=== PATIENT | male | born 1960 ===

== ENCOUNTER 2018-06-20 05:03 | Observation (INO) | payer MEDICARE, MEDICAID ==
--- NOTE | 2018-06-20 05:18 | C.PDOC ---
History Of Present Illness Patient presents to the ER with a complaint of intermittent dull aching chest pressure radiating to the back for the past 10 days. Patient states he feels like his blood pressure is high. Denies fever, chills, nausea, or vomiting. Time Seen by Provider: 06/20/18 05:18 Chief Complaint (Nursing): Chest Pain History Per: Patient History/Exam Limitations: no limitations Onset/Duration Of Symptoms: Days (10), Intermittent Episodes Current Symptoms Are (Timing): Still Present Severity: Moderate Pain Scale Rating Of: 4 Quality: Dull, Aching Associated Symptoms: denies: Nausea, Dyspnea, Diaphoresis, Syncope, Other (Fever, Chills) Modifying Factors: None Exacerbating Factors: None Alleviating Factors: None Recent travel outside of the [place]: No Past Medical History Reviewed: Historical Data, Nursing Documentation, Vital Signs Vital Signs: Last Vital Signs Temp 98.1 F 06/20/18 05:11 Pulse 67 06/20/18 05:11 Resp 12 06/20/18 05:11 BP 181/97 H 06/20/18 05:11 Pulse Ox 98 06/20/18 05:11 - Medical History PMH: Anxiety, Diabetes, HTN Denies: Chronic Kidney Disease Surgical History: Cholecystectomy, Coronary Stent Family History: States: Stroke, Diabetes, Hypertension - Social History Hx Tobacco Use: Yes Hx Alcohol Use: No Hx Substance Use: No - Immunization History Hx Tetanus Toxoid Vaccination: No Hx Influenza Vaccination: No Hx Pneumococcal Vaccination: No Review Of Systems Constitutional: Negative for: Fever, Chills Cardiovascular: Positive for: Chest Pain Respiratory: Negative for: Cough, Shortness of Breath Gastrointestinal: Negative for: Nausea, Vomiting Neurological: Negative for: Weakness, Numbness Physical Exam - Physical Exam Appears: Non-toxic Skin: Warm, Dry Head: Normacephalic Oral Mucosa: Moist Neck: Trachea Midline, Supple Chest: Symmetrical, No Tenderness Cardiovascular: Rhythm Regular Respiratory: No Rales, No Rhonchi, No Wheezing Gastrointestinal/Abdominal: Soft, No Tenderness Neurological/Psych: Oriented x3 ED Course And Treatment - Laboratory Results Result Diagrams: 06/20/18 05:26 06/20/18 05:26 ECG: Interpreted By Me, Viewed By Me ECG Rhythm: Sinus Rhythm (60), R BBB, Nonspecific Changes O2 Sat by Pulse Oximetry: 98 (Room air) Pulse Ox Interpretation: Normal - Radiology CXR: Interpreted by Me, Viewed By Me Progress Note: EKG and blood work ordered. Disposition Counseled Patient/Family Regarding: Studies Performed, Diagnosis - Disposition Disposition Time: 05:18 Condition: FAIR Forms: [facility] (M[place]ese) - Clinical Impression Clinical Impression: Chest pain - Scribe Statement The provider has reviewed the documentation as recorded by the Scribe Ric Marino All medical record entries made by the Scribe were at my direction and personally dictated by me. I have reviewed the chart and agree that the record accurately reflects my personal performance of the history, physical exam, medical decision making, and the department course for this patient. I have also personally directed, reviewed, and agree with the discharge instructions and disposition. Physician Patient Turnover Patient Signed Over To: Puma Presley Handoff Comments: pending xray, re-eval and dispo
[2018-06-20 05:28] LABS: BASO % 0.8 % (0.0-2.0); EOS # 0.1 K/uL (0.0-0.7); EOS % 2.6 % (0.0-4.0); LYMPH # 2.2 K/uL (1.0-4.3); LYMPH % 38.5 % (20.0-40.0); MEAN CELL VOLUME 89.2 fL (80.0-94.0); MEAN CORPUSCULAR HEMOGLOBIN 31.3 pg (27.0-31.0); MEAN CORPUSCULAR HGB CONC 35.1 g/dL (33.0-37.0); MEAN PLATELET VOLUME 8.7 fL (7.2-11.7); MONO # 0.4 K/uL (0.0-0.8); MONO % 7.2 % (0.0-10.0); NEUT # 2.9 K/uL (1.8-7.0); NEUT % 50.9 % (50.0-75.0); NRBC % 0.1 % (0.0-2.0); RBC 4.79 Mil/uL (4.40-5.90); RED CELL DISTRIBUTION WIDTH 13.1 % (11.5-14.5); WHITE BLOOD COUNT 5.7 K/uL (4.8-10.8)
[2018-06-20 05:54] LABS: ALB/GLOB RATIO 1.5 (1.0-2.1); ALBUMIN 4.2 g/dL (3.5-5.0); ALT/SGPT 32 U/L (21-72); AST/SGOT 20 U/L (17-59); BLOOD UREA NITROGEN 15 mg/dL (9-20); CALCIUM 8.8 mg/dl (8.6-10.4); GFR NON-AFRICAN AMERICAN > 60; LIPASE 155 U/L (23-300)
[2018-06-20 06:10] LABS: PROTHROMBIN TIME 10.7 SECONDS (9.7-12.2)
[2018-06-20] MEDS ORDERED: Potassium Chloride 10 mEq ER Tab PO STA (06:25)
[2018-06-20] MEDS ORDERED: Potassium Chloride 20 mEq ER Tab PO ONE (06:40)
[2018-06-20] MEDS ORDERED: Aspirin 325 mg EC Tablets PO ONE (08:08)
--- NOTE | 2018-06-20 08:34 | CP.PCM.HP ---
<Serafin Sandoval - Last Filed: 06/20/18 16:44> History of Present Illness - History of Present Illness History of Present Illness: cc: My chest hurts, my back hurts, I'm worried help me HPI: Patient is a 57 yo male w/ PMH of HTN, HLD, hx of panic attacks, and DM2. Presents to the ED with a 10 day history of chest discomfort. He says it began on after he saw his PMD in office Dr Begum who changed him from Losartan to Lisinopril. He then had an episode of 6/10 CP while on the computer at home last night at 3AM which prompted hiom to check his BP- reading 180 SBP. This braught him anxiety and prompted him to come to [facility]. He has a 25yr hx of panic attacks for which is not controlled with medication or formal psychotherapy. He gets these symptoms when he is stressed out with home issues and family issues. Pt had stress test 4yrs ago which was normal and was Cathed 6 years ago showing plaque in Coronary arteries. Pt admits to the pain radiating to the back. He has hx of Herniated Lumbar discs and longstanding backpain. Pt has a gambling problem as well. ROS POS+ cp at rest, back pain, anxiety, NEG- SOB, FC, NV, Palps, headache, sweating, abd pain, changes in BM, dysuria, cough, PMHx: HTN, HLD, hx of panic attacks, and DM2 PSH: Cholecystectomy, left shoulder rotator cuff surgery, cardiac cath 6 years ago and colonoscopy over 6 years ago. FH: Mom side has DM, Father HTN, and his sister from stroke at age 22. SH: Former smoker, denies etoh, or illicit drug use, retired from the [employer]. Allergies: NKDA PMD: Shy. Home Rx: Metformin Lisiopril Crestor (doesnt take) Full code Present on Admission - Present on Admission Any Indicators Present on Admission: No Review of Systems - Review of Systems Review of Systems: 12 point ROS obtained and noted in HPI Past Patient History - Infectious Disease Hx of Infectious Diseases: None - Past Medical History & Family History Past Medical History?: Yes - Past Social History Smoking Status: Never Smoked - CARDIAC Hx Hypertension: Yes - PULMONARY Hx Respiratory Disorders: No - NEUROLOGICAL Hx Neurological Disorder: No - HEENT Hx HEENT Problems: No - RENAL Hx Chronic Kidney Disease: No - ENDOCRINE/METABOLIC Hx Endocrine Disorders: Yes Hx Diabetes Mellitus Type 2: Yes - HEMATOLOGICAL/ONCOLOGICAL Hx Blood Disorders: No - INTEGUMENTARY Hx Dermatological Problems: No - MUSCULOSKELETAL/RHEUMATOLOGICAL Hx Falls: No - GASTROINTESTINAL Hx Gastrointestinal Disorders: No - GENITOURINARY/GYNECOLOGICAL Hx Genitourinary Disorders: No - PSYCHIATRIC Hx Anxiety: Yes Hx Substance Use: No - SURGICAL HISTORY Hx Cholecystectomy: Yes Hx Coronary Stent: Yes - ANESTHESIA Hx Anesthesia: Yes Hx Anesthesia Reactions: No Meds Allergies/Adverse Reactions: Allergies Allergy/AdvReac Type Severity Reaction Status Date / Time No Known Allergies Allergy Verified 04/28/16 01:53 Physical Exam - Constitutional Appears: Well, Non-toxic, No Acute Distress - Head Exam Head Exam: ATRAUMATIC, NORMAL INSPECTION - Eye Exam Eye Exam: EOMI, Normal appearance. absent: Scleral icterus Pupil Exam: NORMAL ACCOMODATION - ENT Exam ENT Exam: Mucous Membranes Moist, Normal Exam - Neck Exam Neck exam: Positive for: Normal Inspection. Negative for: Tenderness, Thyromegaly - Respiratory Exam Respiratory Exam: Clear to Auscultation Bilateral. absent: Chest Wall Tenderness, Wheezes, Respiratory Distress - Cardiovascular Exam Cardiovascular Exam: REGULAR RHYTHM, RRR, +S1, +S2. absent: Tachycardia - GI/Abdominal Exam GI & Abdominal Exam: Normal Bowel Sounds, Soft. absent: Distended, Firm, Rigid, Tenderness - Extremities Exam Extremities exam: Positive for: normal inspection, pedal pulses present. Negative for: joint swelling, pedal edema - Back Exam Back exam: NORMAL INSPECTION. absent: paraspinal tenderness, rash noted Additional comments: decreased ROM in Lumbar flex and extension - Neurological Exam Neurological exam: Alert, CN II-XII Intact, Oriented x3 - Psychiatric Exam Psychiatric exam: Anxious, Normal Affect, Normal Mood - Skin Skin Exam: Normal Color, Warm Results - Vital Signs Recent Vital Signs: Last Vital Signs Temp 98.3 F 06/20/18 07:17 Pulse 55 L 06/20/18 07:17 Resp 18 06/20/18 07:17 BP 155/81 H 06/20/18 07:17 Pulse Ox 99 06/20/18 07:17 - Labs Result Diagrams: 06/20/18 05:26 06/20/18 05:26 Labs: Laboratory Results - last 24 hr 06/20/18 06/20/18 06/20/18 05:26 05:26 05:26 WBC 5.7 RBC 4.79 Hgb 15.0 Hct 42.7 MCV 89.2 D MCH 31.3 H MCHC 35.1 RDW 13.1 Plt Count 196 MPV 8.7 Neut % (Auto) 50.9 Lymph % (Auto) 38.5 [place] % (Auto) 7.2 Eos % (Auto) 2.6 Baso % (Auto) 0.8 Neut # (Auto) 2.9 Lymph # (Auto) 2.2 [place] # (Auto) 0.4 Eos # (Auto) 0.1 Baso # (Auto) 0.0 PT 10.7 INR 1.0 APTT 34 Sodium 137 Potassium 3.2 L Chloride 102 Carbon Dioxide 26 Anion Gap 13 BUN 15 Creatinine 0.6 L Est GFR ( Amer) > 60 Est GFR (Non-Af Amer) > 60 Random Glucose 156 H Calcium 8.8 Total Bilirubin 0.7 AST 20 ALT 32 Alkaline Phosphatase 109 Troponin I < 0.0120 NT-Pro-B Natriuret Pep 74.0 Total Protein 6.9 Albumin 4.2 Globulin 2.7 Albumin/Globulin Ratio 1.5 Lipase 155 Assessment & Plan - Assessment and Plan (Free Text) Assessment: 57M , PMHx of panic attack DM2 and HLD presents to ED for CP and anxiety. EKG shows NSR, w/ incomplete RBBB. -given Stat dose ASA 325 PLAN Angina r/o ACS -Etiology likely anxiety induced from a panic attack -EKG shows NSR -Troponins x2 Neg: f/u last troponins -CKMBs neg x1 -Dr Wasserman Consulted f/u recs -ASA 81mg PO QD HTN -Continue Lisinpril 10mg QD -Consider increasing dose if SBP is still elevated -Monitor Vitals DM2 -Metformin 1000mg BID PO -Accuchecks ACHS -Hypoglycemic protocol -ISS High -f/u A1c Hx of Panic Attacks -Pt refuses to take medications for this condition -Pt just uses personal coping mechanisms -consider psych eval if pt is agreeable -f/u UDS Hypokalemia -K+ 3.2 on admission -Given KCL 20 in ED -40 meq oral scott/n -f/u repeat CMP HLD -continue Crestor 20mg -f/u Lipid panel -pt educated to take home rx PPX -GI not indicated -Heparin 5000u q8 sc -ASA 81 QD d/w Dr Raad Shipley <Raad Shipley - Last Filed: 06/20/18 17:38> Results - Vital Signs Recent Vital Signs: Last Vital Signs Temp 97.9 F 06/20/18 15:49 Pulse 65 06/20/18 15:49 Resp 18 06/20/18 15:49 BP 132/65 06/20/18 15:49 Pulse Ox 95 06/20/18 15:49 - Labs Result Diagrams: 06/20/18 05:26 06/20/18 05:26 Labs: Laboratory Results - last 24 hr 06/20/18 06/20/18 06/20/18 05:26 05:26 05:26 WBC 5.7 RBC 4.79 Hgb 15.0 Hct 42.7 MCV 89.2 D MCH 31.3 H MCHC 35.1 RDW 13.1 Plt Count 196 MPV 8.7 Neut % (Auto) 50.9 Lymph % (Auto) 38.5 [place] % (Auto) 7.2 Eos % (Auto) 2.6 Baso % (Auto) 0.8 Neut # (Auto) 2.9 Lymph # (Auto) 2.2 [place] # (Auto) 0.4 Eos # (Auto) 0.1 Baso # (Auto) 0.0 PT 10.7 INR 1.0 APTT 34 Sodium 137 Potassium 3.2 L Chloride 102 Carbon Dioxide 26 Anion Gap 13 BUN 15 Creatinine 0.6 L Est GFR ( Amer) > 60 Est GFR (Non-Af Amer) > 60 POC Glucose (mg/dL) Random Glucose 156 H Calcium 8.8 Total Bilirubin 0.7 AST 20 ALT 32 Alkaline Phosphatase 109 Total Creatine Kinase CK-MB (Mass) Troponin I < 0.0120 NT-Pro-B Natriuret Pep 74.0 Total Protein 6.9 Albumin 4.2 Globulin 2.7 Albumin/Globulin Ratio 1.5 Lipase 155 06/20/18 06/20/18 06/20/18 12:42 15:09 16:32 WBC RBC Hgb Hct MCV MCH MCHC RDW Plt Count MPV Neut % (Auto) Lymph % (Auto) [place] % (Auto) Eos % (Auto) Baso % (Auto) Neut # (Auto) Lymph # (Auto) [place] # (Auto) Eos # (Auto) Baso # (Auto) PT INR APTT Sodium Potassium Chloride Carbon Dioxide Anion Gap BUN Creatinine Est GFR ( Amer) Est GFR (Non-Af Amer) POC Glucose (mg/dL) 250 H 135 H Random Glucose Calcium Total Bilirubin AST ALT Alkaline Phosphatase Total Creatine Kinase 42 L CK-MB (Mass) 0.81 Troponin I < 0.0120 NT-Pro-B Natriuret Pep Total Protein Albumin Globulin Albumin/Globulin Ratio Lipase Attending/Attestation - Attestation I have personally seen and examined this patient.: Yes I have fully participated in the care of the patient.: Yes I have reviewed all pertinent clinical information: Yes Notes (Text): 06/20/18 17:34 Medical attending: Patient was seen and examined by me with the medical residents Patient reported no pain when I met and examined him. He reported overnight he did have pain. There is a medical history of DM and HTN - he says to us that he does not take cholesterol medication out of his own choosing. We explained to him that because of the history of HTN and DM that he should be on a statin - he says people have told him this before but he wanted to try other ways to lower cholestrol - we need lipid panel. Also he thinks his new medication the lisinopril gives him headaches. When he first came to the hospital the systolic BP was elevated and it is now decreased. No headache at this time We will get cardiology evaluation while patient is here Will check cardiac enzymes q6hrs and monitor patient on telemetry. Raad Shipley
[2018-06-20] MEDS ORDERED: Dextrose 50% SYRINGE Inj (50 ml) IV PRN (10:06)
[2018-06-20] MEDS ORDERED: Glucagon Recombinant 1 mg Inj IM PRN (10:06)
[2018-06-20] MEDS: (Novolin R) Insulin Human Regular 100 units/ml vial SC SCH ×3 (12:52→21:52)
[2018-06-20] MEDS ORDERED: Potassium Chloride 20 mEq/15 ml LIQ UD PO ONE (14:00)
[2018-06-20 15:59] LABS: CK-MB 0.81 ng/mL (0.0-3.38)
--- NOTE | 2018-06-20 17:19 | CP.PCM.CON ---
History of Present Illness - History of Present Illness History of Present Illness: I was asked to see patient by Dr Shipley. Patient seen 06/20/18 1700 Patient is a 57 year old male withHTN who presents with substernal chest pain. Symptoms began yesterday, and he describes a pressure like sensation in the center of the chest. The patient describes associated dyspnea and radiation to the left arm. He had headache Review of Systems - Constitutional Constitutional: absent: As Per HPI, Anorexia, Chills, Daytime Sleepiness, Excessive Sweating, Fatigue, Fever, Frequent Falls, Headache, Increased Appetite, Lethargy, Malaise, Night Sweats, Snoring, Sleep Apnea, Weight Gain, Weight Loss, Weakness, Other - EENT Eyes: absent: As Per HPI, Blind Spots, Blurred Vision, Change in Vision, Decreased Night Vision, Diplopia, Discharge, Dry Eye, Exophthalmos, Floaters, Irritation, Itchy Eyes, Loss of Peripheral Vision, Pain, Photophobia, Requires Corrective Lenses, Sees Flashes, Spots in Vision, Tunnel Vision, Other Visual Disturbances, Loss of Vision, Other Ears: absent: As Per HPI, Decreased Hearing, Ear Discharge, Ear Pain, Tinnitus, Abnormal Hearing, Disequilibrium, Dizziness, Other Nose/Mouth/Throat: absent: As Per HPI, Epistaxis, Nasal Congestion, Nasal D ischarge, Nasal Obstruction, Nasal Trauma, Nose Pain, Post Nasal Drip, Sinus Pain, Sinus Pressure, Bleeding Gums, Change in Voice, Dental Pain, Dry Mouth, Dysphagia, Halitosis, Hoarsness, Lip Swelling, Mouth Lesions, Mouth Pain, Odynophagia, Sore Throat, Throat Swelling, Tongue Swelling, Facial Pain, Neck Pain, Neck Mass, Other - Cardiovascular Cardiovascular: Chest Pain, Dyspnea - Respiratory Respiratory: Dyspnea - Gastrointestinal Gastrointestinal: absent: As Per HPI, Abdominal Pain, Belching, Bloating, Change in Bowel Habits, Change in Stool Character, Coffee Ground Emesis, Constipation, Cramping, Diarrhea, Dyspepsia, Dysphagia, Early Satiety, Excessive Flatus, Fecal Incontinence, Heartburn, Hematemesis, Hematochezia, Loose Stools, Melena, Nausea, Odynophagia, Temesmus, Vomiting, Other - Genitourinary Genitourinary: absent: As Per HPI, Change in Urinary Stream, Difficulty Urinating, Dysuria, Flank Pain, Hematuria, Pyuria, Nocturia, Urinary Incontinence, Urinary Frequency, Urinary Hesitance, Urinary Urgency, Voiding Freq/Small Amts, Freq UTI, Hx Renal/Bladder Calculi, Hx /Renal Surgery, Bladder Distension, Other - Musculoskeletal Musculoskeletal: absent: As Per HPI, Abnormal Gait, Arthralgias, Atrophy, Back Pain, Deformity, Joint Swelling, Limited Range of Motion, Loss of Height, Muscle Cramps, Muscle Weakness, Myalgias, Neck Pain, Numbness, Radiating Pain into Limb, Stiffness, Tingling, Other - Integumentary Integumentary: absent: As Per HPI, Acne, Alopecia, Bleeding Lesions, Change in Hair, Change in Nails, Change in Pigmentation, Changing Lesions, Dry Skin, Erythema, Furuncle, Hirsutism, Lesions, New Lesions, Non-Healing Lesions, P hotosensitivity, Pruritus, Rash, Skin Pain, Skin Ulcer, Sores, Striae, Swelling, Unusual Bruising, Wounds, Jaundice, Other - Neurological Neurological: absent: As Per HPI, Abnormal Gait, Abnormal Hearing, Abnormal Movements, Abnormal Speech, Behavioral Changes, Burning Sensations, Confusion, Convulsions, Disequilibrium, Dizziness, Numbness, Focal Weakness, Frequent Falls, Headaches, Lack of Coordination, Loss of Vision, Memory Loss, Paresthesias, Radicular Pain, Restless Legs, Sensory Deficit, Syncope, Tingling, Tremor, Vertigo, Weakness, Other Visual Disturbances, Other - Psychiatric Psychiatric: absent: As Per HPI, Abnormal Sleep Pattern, Anhedonia, Anxiety, Auditory Hallucinations, Behavioral Changes, Change in Appetite, Change in Libido, Confusion, Depression, Difficulty Concentrating, Hallucinations, Homic idal Ideation, Hopelessness, Irritability, Memory Loss, Mood Swings, Panic Attacks, Paranoia, Suicidal Ideation, Visual Hallucinations, Tactile Hallucinations, Other - Endocrine Endocrine: absent: As Per HPI, Change in Body Appearance, Change in Libido, Cold Intolorance, Deepening of Voice, Excessive Sweating, Fatigue, Flushing, Heat Intolorance, Increase in Ring/Shoe/Hat Size, Palpitations, Polydipsia, Polyphagia, Polyuria, Other - Hematologic/Lymphatic Hematologic: absent: As Per HPI, Easy Bleeding, Easy Bruising, Lymphadenopathy, Other Past Patient History - Infectious Disease Hx of Infectious Diseases: None - Past Medical History & Family History Past Medical History?: Yes - Past Social History Smoking Status: Never Smoked - CARDIAC Hx Hypertension: Yes - PULMONARY Hx Respiratory Disorders: No - NEUROLOGICAL Hx Neurological Disorder: No - HEENT Hx HEENT Problems: No - RENAL Hx Chronic Kidney Disease: No - ENDOCRINE/METABOLIC Hx Endocrine Disorders: Yes Hx Diabetes Mellitus Type 2: Yes - HEMATOLOGICAL/ONCOLOGICAL Hx Blood Disorders: No - INTEGUMENTARY Hx Dermatological Problems: No - MUSCULOSKELETAL/RHEUMATOLOGICAL Hx Falls: No - GASTROINTESTINAL Hx Gastrointestinal Disorders: No - GENITOURINARY/GYNECOLOGICAL Hx Genitourinary Disorders: No - PSYCHIATRIC Hx Anxiety: Yes Hx Substance Use: No - SURGICAL HISTORY Hx Cholecystectomy: Yes Hx Coronary Stent: Yes - ANESTHESIA Hx Anesthesia: Yes Hx Anesthesia Reactions: No Meds Allergies/Adverse Reactions: Allergies Allergy/AdvReac Type Severity Reaction Status Date / Time No Known Allergies Allergy Verified 04/28/16 01:53 - Medications Medications: Current Medications Acetaminophen (Tylenol 325mg Tab) 650 mg PO Q6 PRN PRN Reason: Pain, moderate (4-7) Dextrose (Dextrose 50% Inj) 0 ml IV STAT PRN; Protocol PRN Reason: Hypoglycemia Protocol Dextrose (Glutose 15) 0 gm PO ONCE PRN; Protocol PRN Reason: Hypoglycemia Protocol Glucagon (Glucagen Diagnostic Kit) 0 mg IM STAT PRN; Protocol PRN Reason: Hypoglycemia Protocol Heparin Sodium (Porcine) (Heparin) 5,000 units SC Q8 [facility] Last Admin: 06/20/18 13:57 Dose: 5,000 units Dextrose (Dextrose 5% In Water 1000 Ml) 1,000 mls @ 0 mls/hr IV .Q0M PRN; Protocol PRN Reason: Hypoglycemia Protocol Influenza Virus Vaccine (Fluzone Quad [id number]) 60 mcg IM .ONCE ONE Stop: 06/22/18 14:01 Insulin Human Regular (Novolin R) 0 unit SC ACHS [place]; Protocol Last Admin: 06/20/18 12:52 Dose: 6 units Lisinopril (Zestril) 10 mg PO DAILY [facility] Last Admin: 06/20/18 11:01 Dose: 10 mg Pneumococcal Polyvalent Vaccine (Pneumovax 23 Vaccine) 0.5 ml IM .ONCE ONE Stop: 06/22/18 14:01 Rosuvastatin Calcium (Crestor) 20 mg PO HS [facility] Physical Exam - Constitutional Appears: Non-toxic - Head Exam Head Exam: NORMAL INSPECTION - Eye Exam Eye Exam: Normal appearance - ENT Exam ENT Exam: Mucous Membranes Moist - Neck Exam Neck exam: Positive for: Full Rom, Lymphadenopathy, Normal Inspection - Respiratory Exam Respiratory Exam: Clear to Auscultation Bilateral, NORMAL BREATHING PATTERN - Cardiovascular Exam Cardiovascular Exam: REGULAR RHYTHM - GI/Abdominal Exam GI & Abdominal Exam: Normal Bowel Sounds - Rectal Exam Rectal Exam: Deferred - Extremities Exam Extremities exam: Positive for: normal inspection. Negative for: pedal edema - Back Exam Back exam: NORMAL INSPECTION - Neurological Exam Neurological exam: Alert, Oriented x3 - Psychiatric Exam Psychiatric exam: Normal Affect - Skin Skin Exam: Normal Color Results - Vital Signs Recent Vital Signs: Last Vital Signs Temp 97.9 F 06/20/18 15:49 Pulse 65 06/20/18 15:49 Resp 18 06/20/18 15:49 BP 132/65 06/20/18 15:49 Pulse Ox 95 06/20/18 15:49 - Labs Result Diagrams: 06/20/18 05:26 06/20/18 05:26 Labs: Laboratory Results - last 24 hr 06/20/18 06/20/18 06/20/18 05:26 05:26 05:26 WBC 5.7 RBC 4.79 Hgb 15.0 Hct 42.7 MCV 89.2 D MCH 31.3 H MCHC 35.1 RDW 13.1 Plt Count 196 MPV 8.7 Neut % (Auto) 50.9 Lymph % (Auto) 38.5 [place] % (Auto) 7.2 Eos % (Auto) 2.6 Baso % (Auto) 0.8 Neut # (Auto) 2.9 Lymph # (Auto) 2.2 [place] # (Auto) 0.4 Eos # (Auto) 0.1 Baso # (Auto) 0.0 PT 10.7 INR 1.0 APTT 34 Sodium 137 Potassium 3.2 L Chloride 102 Carbon Dioxide 26 Anion Gap 13 BUN 15 Creatinine 0.6 L Est GFR ( Amer) > 60 Est GFR (Non-Af Amer) > 60 POC Glucose (mg/dL) Random Glucose 156 H Calcium 8.8 Total Bilirubin 0.7 AST 20 ALT 32 Alkaline Phosphatase 109 Total Creatine Kinase CK-MB (Mass) Troponin I < 0.0120 NT-Pro-B Natriuret Pep 74.0 Total Protein 6.9 Albumin 4.2 Globulin 2.7 Albumin/Globulin Ratio 1.5 Lipase 155 12/12/18 12/12/18 12:42 15:09 WBC RBC Hgb Hct MCV MCH MCHC RDW Plt Count MPV Neut % (Auto) Lymph % (Auto) [place] % (Auto) Eos % (Auto) Baso % (Auto) Neut # (Auto) Lymph # (Auto) [place] # (Auto) Eos # (Auto) Baso # (Auto) PT INR APTT Sodium Potassium Chloride Carbon Dioxide Anion Gap BUN Creatinine Est GFR ( Amer) Est GFR (Non-Af Amer) POC Glucose (mg/dL) 250 H Random Glucose Calcium Total Bilirubin AST ALT Alkaline Phosphatase Total Creatine Kinase 42 L CK-MB (Mass) 0.81 Troponin I < 0.0120 NT-Pro-B Natriuret Pep Total Protein Albumin Globulin Albumin/Globulin Ratio Lipase - EKG Data EKG Interpreted by: Myself EKG shows normal: Sinus rhythm Assessment & Plan (1) Chest pain Assessment and Plan: ruled out for RI. Patient has cardiovascular risk factors. schedule stress test. Status: Acute (2) Diabetes mellitus Assessment and Plan: risk factor for CAD Status: Acute (3) HTN (hypertension) Assessment and Plan: blood pressure is controlled. Status: Acute
[2018-06-20 20:45] LABS: CK-MB 0.72 ng/mL (0.0-3.38)
--- NOTE | 2018-06-20 21:06 | CARD ---
APPROVED REPORT Date of service: 06/20/2018 EKG Measurement Heart [id number] <Conclusion> Normal sinus rhythm Incomplete right bundle branch block Minimal voltage criteria for LVH, may be normal variant Borderline ECG
[2018-06-21 01:54] VITALS: RESP 20
[2018-06-21] MEDS: (Novolin R) Insulin Human Regular 100 units/ml vial SC SCH ×2 (07:23→12:35)
[2018-06-21 07:42] LABS: BASO % 0.7 % (0.0-2.0); EOS # 0.1 K/uL (0.0-0.7); EOS % 1.9 % (0.0-4.0); HEMOGLOBIN 15.5 g/dL (12.0-18.0); LYMPH # 2.9 K/uL (1.0-4.3); LYMPH % 43.6 % (20.0-40.0); MEAN CELL VOLUME 89.4 fL (80.0-94.0); MEAN CORPUSCULAR HEMOGLOBIN 31.3 pg (27.0-31.0); MEAN PLATELET VOLUME 8.6 fL (7.2-11.7); MONO # 0.5 K/uL (0.0-0.8); MONO % 7.1 % (0.0-10.0); NEUT # 3.1 K/uL (1.8-7.0); NEUT % 46.7 % (50.0-75.0); NRBC % 0.2 % (0.0-2.0); RBC 4.93 Mil/uL (4.40-5.90); RED CELL DISTRIBUTION WIDTH 13.2 % (11.5-14.5); WHITE BLOOD COUNT 6.6 K/uL (4.8-10.8)
[2018-06-21] MEDS ORDERED: Caffeine Citrated **INJ** 20 MG/ML IV ONE (08:06)
[2018-06-21 08:20] LABS: ALB/GLOB RATIO 1.3 (1.0-2.1); ALBUMIN 3.6 g/dL (3.5-5.0); ALT/SGPT 36 U/L (21-72); AST/SGOT 20 U/L (17-59); BLOOD UREA NITROGEN 11 mg/dL (9-20); CALCIUM 8.3 mg/dl (8.6-10.4); GFR NON-AFRICAN AMERICAN > 60; HDL CHOLESTEROL 40 mg/dL (30-70)
[2018-06-21 08:27] LABS: LDL CHOLESTEROL 136 mg/dL (0-129)
[2018-06-21 09:16] VITALS: BP 137/75; PULSE 55; TEMP 98.2; O2SAT 97
--- NOTE | 2018-06-21 09:55 | RAD ---
Date of service: 06/20/2018 PROCEDURE: CHEST RADIOGRAPH, 1 VIEW HISTORY: chest pain COMPARISON: 04/28/2016 FINDINGS: LUNGS: Shallow lung volumes. No consolidation. PLEURA: No pneumothorax or pleural fluid seen. CARDIOVASCULAR: There is absence of aortic atherosclerotic calcification on x-ray. Mild cardiomegaly-similar. Minimal pulmonary venous congestion probable-crowding from shallow lung volumes-taking into consideration. OSSEOUS STRUCTURES: Bilateral shoulder arthrosis. Thoracic spondylosis. VISUALIZED UPPER ABDOMEN: Normal. OTHER FINDINGS: None. IMPRESSION: No consolidation, pneumothorax or pleural effusion. Mild cardiomegaly-similar. Probable minimal pulmonary venous congestion-chronicity unknown.
--- NOTE | 2018-06-21 10:58 | CP.PCM.PN ---
Subjective - Date & Time of Evaluation Date of Evaluation: 06/21/18 Time of Evaluation: 08:30 - Subjective Subjective: nuclear stress test performed. await nuclear images Objective - Vital Signs/Intake and Output Vital Signs (last 24 hours): Temp Pulse Resp BP Pulse Ox 98.2 F 55 L 20 137/75 97 06/21/18 09:14 06/21/18 09:14 06/21/18 09:14 06/21/18 09:14 06/21/18 09:14 - Medications Medications: Current Medications Acetaminophen (Tylenol 325mg Tab) 650 mg PO Q6 PRN PRN Reason: Pain, moderate (4-7) Dextrose (Dextrose 50% Inj) 0 ml IV STAT PRN; Protocol PRN Reason: Hypoglycemia Protocol Dextrose (Glutose 15) 0 gm PO ONCE PRN; Protocol PRN Reason: Hypoglycemia Protocol Glucagon (Glucagen Diagnostic Kit) 0 mg IM STAT PRN; Protocol PRN Reason: Hypoglycemia Protocol Heparin Sodium (Porcine) (Heparin) 5,000 units SC Q8 [facility] Last Admin: 06/21/18 06:09 Dose: 5,000 units Dextrose (Dextrose 5% In Water 1000 Ml) 1,000 mls @ 0 mls/hr IV .Q0M PRN; Protocol PRN Reason: Hypoglycemia Protocol Influenza Virus Vaccine (Fluzone Quad [id number]) 60 mcg IM .ONCE ONE Stop: 06/22/18 14:01 Insulin Human Regular (Novolin R) 0 unit SC ACHS [facility]; Protocol Last Admin: 06/20/18 21:52 Dose: Not Given Lisinopril (Zestril) 10 mg PO DAILY [facility] Last Admin: 06/20/18 11:01 Dose: 10 mg Pneumococcal Polyvalent Vaccine (Pneumovax 23 Vaccine) 0.5 ml IM .ONCE ONE Stop: 06/22/18 14:01 Rosuvastatin Calcium (Crestor) 20 mg PO HS [facility] Last Admin: 06/20/18 21:54 Dose: 20 mg - Labs Labs: 06/21/18 07:37 06/21/18 07:37 PT 10.7 SECONDS (9.7-12.2) 06/20/18 05:26 INR 1.0 06/20/18 05:26 APTT 34 SECONDS (21-34) 06/20/18 05:26 Assessment and Plan (1) Chest pain Status: Acute (2) Diabetes mellitus Status: Acute (3) HTN (hypertension) Status: Acute
[2018-06-21] MEDS ORDERED: Potassium Chloride 20 mEq/15 ml LIQ UD PO ONE (11:45)
[2018-06-21] MEDS ORDERED: Pneumococcal 23-Valent Vaccine IM ONE (15:31)
--- NOTE | 2018-06-21 15:31 | CP.PCM.DIS ---
<CedricreggiechelseySerafin - Last Filed: 06/22/18 13:23> Provider - Provider Date of Admission: 06/20/18 08:06 Attending physician: Raad Shipley DO Consults: 06/20/18 09:43 Cardiology Consult Routine Comment: Consulting Provider: Jessica Wasserman Consulting Physician: Jessica Wasserman Reason for Consult: angina, r/o acs, trops and ekg neg x1 Time Spent in preparation of Discharge (in minutes): 45 Hospital Course - Lab Results Lab Results: Most Recent Lab Values WBC 6.6 K/uL (4.8-10.8) 06/21/18 07:37 RBC 4.93 Mil/uL (4.40-5.90) 06/21/18 07:37 Hgb 15.5 g/dL (12.0-18.0) 06/21/18 07:37 Hct 44.1 % (35.0-51.0) 06/21/18 07:37 MCV 89.4 fL (80.0-94.0) 06/21/18 07:37 MCH 31.3 pg (27.0-31.0) H 06/21/18 07:37 MCHC 35.0 g/dL (33.0-37.0) 06/21/18 07:37 RDW 13.2 % (11.5-14.5) 06/21/18 07:37 Plt Count 211 K/uL (130-400) 06/21/18 07:37 MPV 8.6 fL (7.2-11.7) 06/21/18 07:37 Neut % (Auto) 46.7 % (50.0-75.0) L 06/21/18 07:37 Lymph % (Auto) 43.6 % (20.0-40.0) H 06/21/18 07:37 Dane % (Auto) 7.1 % (0.0-10.0) 06/21/18 07:37 Eos % (Auto) 1.9 % (0.0-4.0) 06/21/18 07:37 Baso % (Auto) 0.7 % (0.0-2.0) 06/21/18 07:37 Neut # (Auto) 3.1 K/uL (1.8-7.0) 06/21/18 07:37 Lymph # (Auto) 2.9 K/uL (1.0-4.3) 06/21/18 07:37 Dane # (Auto) 0.5 K/uL (0.0-0.8) 06/21/18 07:37 Eos # (Auto) 0.1 K/uL (0.0-0.7) 06/21/18 07:37 Baso # (Auto) 0.0 K/uL (0.0-0.2) 06/21/18 07:37 PT 10.7 SECONDS (9.7-12.2) 06/20/18 05:26 INR 1.0 06/20/18 05:26 APTT 34 SECONDS (21-34) 06/20/18 05:26 Sodium 138 mmol/L (132-148) 06/21/18 07:37 Potassium 3.4 mmol/L (3.6-5.2) L 06/21/18 07:37 Chloride 101 mmol/L (98-107) 06/21/18 07:37 Carbon Dioxide 27 mmol/L (22-30) 06/21/18 07:37 Anion Gap 14 (10-20) 06/21/18 07:37 BUN 11 mg/dL (9-20) 06/21/18 07:37 Creatinine 0.7 mg/dL (0.8-1.5) L 06/21/18 07:37 Est GFR ( Amer) > 60 06/21/18 07:37 Est GFR (Non-Af Amer) > 60 06/21/18 07:37 POC Glucose (mg/dL) 172 mg/dL (65-110) H 06/21/18 12:44 Random Glucose 109 mg/dL (75-110) 06/21/18 07:37 Hemoglobin A1c 8.8 % (4.2-6.5) H D 06/21/18 12:59 Calcium 8.3 mg/dl (8.6-10.4) L 06/21/18 07:37 Total Bilirubin 0.9 mg/dL (0.2-1.3) 06/21/18 07:37 AST 20 U/L (17-59) 06/21/18 07:37 ALT 36 U/L (21-72) 06/21/18 07:37 Alkaline Phosphatase 87 U/L (38-126) 06/21/18 07:37 Total Creatine Kinase 38 U/L (55-170) L 06/20/18 20:10 CK-MB (Mass) 0.72 ng/mL (0.0-3.38) 06/20/18 20:10 Troponin I < 0.0120 ng/mL (0.00-0.120) 06/20/18 20:10 NT-Pro-B Natriuret Pep 74.0 pg/mL (0-900) 06/20/18 05:26 Total Protein 6.4 g/dL (6.3-8.3) 06/21/18 07:37 Albumin 3.6 g/dL (3.5-5.0) 06/21/18 07:37 Globulin 2.8 gm/dL (2.2-3.9) 06/21/18 07:37 Albumin/Globulin Ratio 1.3 (1.0-2.1) 06/21/18 07:37 Triglycerides 143 mg/dL (0-149) D 06/21/18 07:37 Cholesterol 192 mg/dL (0-199) 06/21/18 07:37 LDL Cholesterol Direct 136 mg/dL (0-129) H 06/21/18 07:37 HDL Cholesterol 40 mg/dL (30-70) 06/21/18 07:37 Lipase 155 U/L (23-300) 06/20/18 05:26 - Hospital Course Hospital Course: cc: My chest hurts, my back hurts, I'm worried help me HPI: Patient is a 57 yo male w/ PMH of HTN, HLD, hx of panic attacks, and DM2. Presents to the ED with a 10 day history of chest discomfort. He says it began on after he saw his PMD in office Dr Begum who changed him from Losartan to Lisinopril. He then had an episode of 6/10 CP while on the computer at home last night at 3AM which prompted arnoldoom to check his BP- reading 180 SBP. This braught him anxiety and prompted him to come to [facility]. He has a 25yr hx of panic attacks for which is not controlled with medication or formal psychotherapy. He gets these symptoms when he is stressed out with home issues and family issues. Pt had stress test 4yrs ago which was normal and was Cathed 6 years ago showing plaque in Coronary arteries. Pt admits to the pain radiating to the back. He has hx of Herniated Lumbar discs and longstanding backpain. Pt has a gambling problem as well. ROS POS+ cp at rest, back pain, anxiety, NEG- SOB, FC, NV, Palps, headache, sweating, abd pain, changes in BM, dysuria, cough, PMHx: HTN, HLD, hx of panic attacks, and DM2 PSH: Cholecystectomy, left shoulder rotator cuff surgery, cardiac cath 6 years ago and colonoscopy over 6 years ago. FH: Mom side has DM, Father HTN, and his sister from stroke at age 22. SH: Former smoker, denies etoh, or illicit drug use, retired from the [employer]. Allergies: NKDA PMD: Florrinto. Home Rx: Metformin Lisiopril Crestor (doesnt take) Full code HOSPITAL STAY Pt was admitted to hospitalist service, for his Angina r/o ACS, Etiology likely anxiety induced from a panic attack, however Dr Wasserman Consulted. He was given a loading dose of ASA , started on lisinopril , heparin 5000u sc and crestor. home does of metformin was started as well, for his DM. Pt's potassium was also repleated from 3.2 to 4. Pt was seen by Dr Wasserman and underwent stress test, d/c home next day. -Stress Test Normal -EKG shows NSR x3 -Troponins x3 Neg -CKMBs neg x3 PLAN Pt is be discharged home on the following medications Metformin 1000mg take @ 8am and 8pm Lisinopril 10mg daily take @ 8am Aspirin 81mg take daily @ 8am Crestor 20mg daily @ 8pm Pt is to follow up within one week with Dr Wasserman cardiology Pt is to seek medical attention immediately if symptoms return take care and be well this is a summary, please refer to [facility] for complete records. Discharge Exam - Head Exam Head Exam: NORMAL INSPECTION - Additional Findings Additional findings: - Constitutional Appears: Well, Non-toxic, No Acute Distress - Head Exam Head Exam: ATRAUMATIC, NORMAL INSPECTION - Eye Exam Eye Exam: EOMI, Normal appearance. absent: Scleral icterus Pupil Exam: NORMAL ACCOMODATION - ENT Exam ENT Exam: Mucous Membranes Moist, Normal Exam - Neck Exam Neck exam: Positive for: Normal Inspection. Negative for: Tenderness, Thyromegaly - Respiratory Exam Respiratory Exam: Clear to Auscultation Bilateral. absent: Chest Wall Tenderness, Wheezes, Respiratory Distress - Cardiovascular Exam Cardiovascular Exam: REGULAR RHYTHM, RRR, +S1, +S2. absent: Tachycardia - GI/Abdominal Exam GI & Abdominal Exam: Normal Bowel Sounds, Soft. absent: Distended, Firm, Rigid, Tenderness - Extremities Exam Extremities exam: Positive for: normal inspection, pedal pulses present. Negative for: joint swelling, pedal edema - Back Exam Back exam: NORMAL INSPECTION. absent: paraspinal tenderness, rash noted Additional comments: decreased ROM in Lumbar flex and extension - Neurological Exam Neurological exam: Alert, CN II-XII Intact, Oriented x3 - Psychiatric Exam Psychiatric exam: Anxious, Normal Affect, Normal Mood - Skin Skin Exam: Normal Color, Warm Discharge Plan - Discharge Medications Prescriptions: RX: Aspirin 81 mg PO DAILY #30 tab.chew RX: Lisinopril [Zestril] 10 mg PO DAILY #30 tab RX: MetFORMIN [glucoPHAGE] 1,000 mg PO BID #60 tab RX: Rosuvastatin Calcium [Crestor] 20 mg PO HS #30 tab - Follow Up Plan Condition: FAIR Disposition: HOME/ ROUTINE Instructions: Diabetes Exchange Diet, Diabetes Diet , Chest Pain (DC), Aspirin, Lisinopril, Metformin, Rosuvastatin Additional Instructions: Pt is be discharged home on the following medications Metformin 1000mg take @ 8am and 8pm Lisinopril 10mg daily take @ 8am Aspirin 81mg take daily @ 8am Crestor 20mg daily @ 8pm Pt is to follow up within one week with Dr Wasserman cardiology Pt is to seek medical attention immediately if symptoms return take care and be well Referrals: Jessica Wasserman MD [Staff Provider] - <Raad Shipley - Last Filed: 06/22/18 13:42> Provider - Provider Date of Admission: 06/20/18 08:06 Attending physician: Raad Shipley DO Consults: 06/20/18 09:43 Cardiology Consult Routine Comment: Consulting Provider: Jessica Wasserman Consulting Physician: Jessica Wasserman Reason for Consult: angina, r/o acs, trops and ekg neg x1 Hospital Course - Lab Results Lab Results: Most Recent Lab Values WBC 6.6 K/uL (4.8-10.8) 06/21/18 07:37 RBC 4.93 Mil/uL (4.40-5.90) 06/21/18 07:37 Hgb 15.5 g/dL (12.0-18.0) 06/21/18 07:37 Hct 44.1 % (35.0-51.0) 06/21/18 07:37 MCV 89.4 fL (80.0-94.0) 06/21/18 07:37 MCH 31.3 pg (27.0-31.0) H 06/21/18 07:37 MCHC 35.0 g/dL (33.0-37.0) 06/21/18 07:37 RDW 13.2 % (11.5-14.5) 06/21/18 07:37 Plt Count 211 K/uL (130-400) 06/21/18 07:37 MPV 8.6 fL (7.2-11.7) 06/21/18 07:37 Neut % (Auto) 46.7 % (50.0-75.0) L 06/21/18 07:37 Lymph % (Auto) 43.6 % (20.0-40.0) H 06/21/18 07:37 Dane % (Auto) 7.1 % (0.0-10.0) 06/21/18 07:37 Eos % (Auto) 1.9 % (0.0-4.0) 06/21/18 07:37 Baso % (Auto) 0.7 % (0.0-2.0) 06/21/18 07:37 Neut # (Auto) 3.1 K/uL (1.8-7.0) 06/21/18 07:37 Lymph # (Auto) 2.9 K/uL (1.0-4.3) 06/21/18 07:37 Dane # (Auto) 0.5 K/uL (0.0-0.8) 06/21/18 07:37 Eos # (Auto) 0.1 K/uL (0.0-0.7) 06/21/18 07:37 Baso # (Auto) 0.0 K/uL (0.0-0.2) 06/21/18 07:37 PT 10.7 SECONDS (9.7-12.2) 06/20/18 05:26 INR 1.0 06/20/18 05:26 APTT 34 SECONDS (21-34) 06/20/18 05:26 Sodium 138 mmol/L (132-148) 06/21/18 07:37 Potassium 3.4 mmol/L (3.6-5.2) L 06/21/18 07:37 Chloride 101 mmol/L (98-107) 06/21/18 07:37 Carbon Dioxide 27 mmol/L (22-30) 06/21/18 07:37 Anion Gap 14 (10-20) 06/21/18 07:37 BUN 11 mg/dL (9-20) 06/21/18 07:37 Creatinine 0.7 mg/dL (0.8-1.5) L 06/21/18 07:37 Est GFR ( Amer) > 60 06/21/18 07:37 Est GFR (Non-Af Amer) > 60 06/21/18 07:37 POC Glucose (mg/dL) 172 mg/dL (65-110) H 06/21/18 12:44 Random Glucose 109 mg/dL (75-110) 06/21/18 07:37 Hemoglobin A1c 8.8 % (4.2-6.5) H D 06/21/18 12:59 Calcium 8.3 mg/dl (8.6-10.4) L 06/21/18 07:37 Total Bilirubin 0.9 mg/dL (0.2-1.3) 06/21/18 07:37 AST 20 U/L (17-59) 06/21/18 07:37 ALT 36 U/L (21-72) 06/21/18 07:37 Alkaline Phosphatase 87 U/L (38-126) 06/21/18 07:37 Total Creatine Kinase 38 U/L (55-170) L 06/20/18 20:10 CK-MB (Mass) 0.72 ng/mL (0.0-3.38) 06/20/18 20:10 Troponin I < 0.0120 ng/mL (0.00-0.120) 06/20/18 20:10 NT-Pro-B Natriuret Pep 74.0 pg/mL (0-900) 06/20/18 05:26 Total Protein 6.4 g/dL (6.3-8.3) 06/21/18 07:37 Albumin 3.6 g/dL (3.5-5.0) 06/21/18 07:37 Globulin 2.8 gm/dL (2.2-3.9) 06/21/18 07:37 Albumin/Globulin Ratio 1.3 (1.0-2.1) 06/21/18 07:37 Triglycerides 143 mg/dL (0-149) D 06/21/18 07:37 Cholesterol 192 mg/dL (0-199) 06/21/18 07:37 LDL Cholesterol Direct 136 mg/dL (0-129) H 06/21/18 07:37 HDL Cholesterol 40 mg/dL (30-70) 06/21/18 07:37 Lipase 155 U/L (23-300) 06/20/18 05:26 Attending/Attestation - Attestation I have personally seen and examined this patient.: Yes I have fully participated in the care of the patient.: Yes I have reviewed all pertinent clinical information, including history, physical exam and plan: Yes Notes (Text): 06/22/18 13:35 Medical attending: Please note the patient was discharged yesterday and this note was sent to me today. The patient was seen and examined by me yesterday. 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 The patient as previously mentioned has a history of DM and HTN - however he explained to us that he does not want to be on cholesterol medication. We still gave patient education as well as an RX for statin. Hopefully he will take it. He is already on ACEI and ASA thank you Raad Shipley
[2018-06-21] MEDS ORDERED: Influenza Vaccine 60 MCG/0.5 ML SYR (3 yr & up) IM ONE (15:32)
[2018-06-22] MEDS ORDERED: Pneumococcal 23-Valent Vaccine IM ONE (14:00)
[2018-06-22] MEDS ORDERED: Influenza Vaccine 60 MCG/0.5 ML SYR (3 yr & up) IM ONE (14:00)
--- NOTE | 2018-06-22 17:12 | CARD ---
APPROVED REPORT Date of service: 06/20/2018 EKG Measurement Heart [id number] <Conclusion> Normal sinus rhythm Left axis deviation Nonspecific T wave abnormality Abnormal ECG
== END 2018-06-21 16:18 | disposition home or self-care (01) ==
LOC: C.ER 05:03 → C.6T 08:06
PROVIDERS: ADMIT Hospitalist; ATTEND Hospitalist
DX: R07.89 Other chest pain (principal); I10 Essential (primary) hypertension; E11.9 Type 2 diabetes mellitus without complications; F41.0 Panic disorder [episodic paroxysmal anxiety]; E78.5 Hyperlipidemia, unspecified; I25.10 Atherosclerotic heart disease of native coronary artery without angina pectoris; I45.10 Unspecified right bundle-branch block; Z87.891 Personal history of nicotine dependence; Z90.49 Acquired absence of other specified parts of digestive tract; Z95.5 Presence of coronary angioplasty implant and graft; Z72.6 Gambling and betting; Z82.49 Family history of ischemic heart disease and other diseases of the circulatory system; Z83.3 Family history of diabetes mellitus
CPT/HCPCS: 36415; 71045; 78452; 80053; 80061; 82948; 83036; 83690; 83880; 84484; 85025; 85610; 85730; 93005; 93017; 96372; 99285; A9502; G0378; J1644; J2785